=== PATIENT | male | born 1985 | race Caucasian/White ===

== ENCOUNTER 2021-08-10 11:11 | Emergency (ER) | payer MEDICAID, SELFPAY ==
[2021-08-10 11:12] VITALS: BP 143/100; PULSE 93; RESP 14; TEMP 36.4; O2SAT 100; BMI 24.0
--- NOTE | 2021-08-10 11:23 | EDS_ITS ---
HPI History of Present Illness Chief Complaint: Nausea/Vomiting Narrative Narrative: Patient presents with nausea and vomiting and burning in his epigastrium. He denies any significant past medical history but is a heavy smoker and takes Suboxone. He denies any alcohol use. He states that he drank a glass of cold water today and immediately threw it up. There was a small amount of blood reported in his vomitus. He denies taking any blood thinners. Currently, he states he is staying with a relative. His relative relates history that patient is under a lot of stress, living with him and his and child and patient's is also with twins. He actually had nausea and vomiting with dry heaving last evening. He denies any fevers or chills. No diarrhea. No exacerbating or alleviating factors, but he states that it feels like he vomited acid. PFSH PFSH Medical History unable to obtain Home Medications clonazepam 0.5 mg PO Q6H PRN PRN 12/23/14 [History Last Taken Unknown] Allergy/AdvReac Type Severity Reaction Status Date / Time No Known Allergies Allergy Verified 08/10/21 11:13 Surgical History unable to obtain Social History Smoking Status: Current every day smoker tobacco type: cigarettes ROS ROS ED ROS Narrative Constitutional: No fever, no chills. HEENT: No sore throat. No neck pain. No loss of vision. No rhinorrhea. Cardiovascular: No chest pain. No palpitations. No pedal edema. Respiratory: No cough, no shortness of breath. Abdominal: Epigastric pain and burning, positive abdominal pain. Positive nausea. Positive vomiting. Blood-tinged vomitus today after drinking cold water. Genitourinary: No dysuria. No hematuria. Musculoskeletal: No myalgias. No arthralgias. Neurologic: No headaches. No dizziness. No lightheadedness. Skin: No rash. No change in color. Psychiatric: No depression. No anxiety. EXAM Physical Exam Narrative Exam Narrative: Afebrile. Vital signs noted. HEENT: Normocephalic. Atraumatic. PERRL, EOMI. Neck soft and supple. No point tenderness or step off. Cardiovascular: Regular rate and rhythm. No murmurs, rubs, or gallops appre ciated. Respiratory: No tachypnea. Lungs clear to auscultation bilaterally. Gastrointestinal: Abdomen soft, nontender, with normoactive bowel sounds. No rebound or guarding. Neurological: Awake. Alert. Nonfocal, nonlateralizing. Skin: No rash. Normal color. No pallor. Musculoskeletal: No pedal edema. Full range of motion extremities. Const Vital Signs: 08/10/21 11:12 Temperature 97.5 F L Temperature Source Temporal Pulse Rate 93 Respiratory Rate 14 Blood Pressure 143/100 H Blood Pressure Mean 114 Pulse Ox 100 Oxygen Delivery Method Room Air MDM MDM MDM Narrative Medical decision making narrative: I do feel that the patient may have more of a gastritis versus peptic ulcer disease. We will check baseline laboratories including lipase, CBC, and CMP. He will be given a GI cocktail. However, after orders were entered I was informed by respiratory and the RN, that the patient did not want to stay and did not want an IV placed or blood drawn, and told the RN that he feels improved. He eloped from the emergency department. He was in stable condition. Discharge Plan Triage Chief Complaint: Nausea/Vomiting ED Provider: [place] Strong Dx/Rx/DC Orders Clinical Impression: Nausea & vomiting, Gastritis, Acute esophagitis, Eloped from emergency department Prescriptions: No Action clonazepam 0.5 MG tablet 0.5 mg PO Q6H PRN PRN (Reason: Anxiety) RF: 0 Primary Care Provider: Care Physician,No Primary Referrals: Care Physician,No Primary [Primary Care Provider] - Disposition Disposition: Elopement Discharge Date/Time: 08/10/21 12:17
--- NOTE | 2021-08-10 11:30 | ED.RN ---
PT WALKS OUT OF DEPARTMENT. STATES I FEEL BETTER. PT REFUSES IV AND BLOOD WORK
--- NOTE | 2021-08-10 11:32 | ED.RN ---
PT HAD PREVIOUSLY REFUSED GOWN
== END 2021-08-10 12:17 | disposition left against medical advice (07) ==
LOC: ED 12:06
PROVIDERS: Emergency Provider Emergency Medicine; Visit Provider Emergency Medicine
DX: K29.70 Gastritis, unspecified, without bleeding (principal); R11.2 Nausea with vomiting, unspecified; K20.90 Esophagitis, unspecified without bleeding; F17.210 Nicotine dependence, cigarettes, uncomplicated; Z53.29 Procedure and treatment not carried out because of patient's decision for other reasons
CPT/HCPCS: 93005; 99282; A4216